=== PATIENT | male | born 1960 | race Caucasian/White ===

== ENCOUNTER 2025-03-10 07:30 | Outpatient (REF) | payer MEDICARE, MEDICAID, SELFPAY ==
--- OUTSIDE RECORDS SUMMARY | 2025-03-10 07:36 | XMS_ITS | Encounter Summary ---
Author Organization [employer] Address [address] [facility] 7t [place] [address] Care Team Providers Care Equine Intern Name Role Phone Alma Hartman MD Primary Care Provider +1- [phone] Reason for Visit * Reason Comments Med Refill Encounter Details Date Type Department Care Team ([facility] st Contact Info) Description 04/26/2024 Refill [facility] MED & PEDS [address] [place], [place] [phone] Alma Hartman MD [address] [place], [place] [phone] Wheeze Social History Tobacco Use Types Packs/Day Years Used Date Smoking Tobacco: Never Assessed Sex and Gender Information Value Date Recorded Sex Assigned at Male 09/23/2022 10:20 AM EDT Legal Sex Male 10:20 AM EDT Gender Identity Male 09/23/2022 10:20 AM EDT Sexual Orientation Choose not to disclose 2021 10:20 AM EDT documented as of this encounter Plan of Treatment Not on file documented as of this encounter Visit Diagnoses Diagnosis Wheeze Wheezing documented in this encounter Care Teams Equine Intern Relationship Specialty Start Date End Date Alma Hartman MD [address] [place], [place] [phone] PCP - General Family Medicine 11/24/18 documented as of this encounter
--- OUTSIDE RECORDS SUMMARY | 2025-03-10 07:36 | XMS_ITS | Clinical Summary ---
Author Organization [employer] Address [address] [facility] 7t [place] [address] Care Team Providers Care Mark Up Designer Name Role Phone Alma Hartman MD Primary Care Provider +1- [phone] Allergies No known active allergies Medications albuterol (2.5 MG/3ML) 0.083% nebulizer solutionIndicatio ns:Mild intermittent asthma without complication INHALE 3 MILLILITER (2.5MG) BY NEBULIZER EVERY 4 HOURS NEEDED 75 mL 2 3 Active lisinopril 10 MG tabletIndications :Primary hypertension Take 1 tablet (10 mg) by mouth Once per day. 90 tablet 3 4 Active fluticasone-salme terol (Advair) 230-21 MCG/ACT inhalerIndication s:Chronic obstructive pulmonary disease, unspecified COPD type (CMS/HCC) Inhale 2 puffs in the morning and at bedtime. Rinse mouth with water after use to reduce aftertaste and incidence of candidiasis. Do not swallow. 12 g 11 4 08/09/20 25 Active ipratropium-albut amina (Combivent Respimat) 20-100 MCG/ACT inhalerIndication s:Wheeze INHALE 1 PUFF 4 TIMES EVERY DAY MAY TAKE ADDITIONAL PUFFS NEEDED NOT TO EXCEED 6 PUFFS IN 24HRS 4 g 4 Active amLODIPine (Norvasc) 5 MG tabletIndications :Primary hypertension TAKE 1 TABLET (5 MG) BY MOUTH ONCE PER DAY. 90 tablet 1 5 Active chlorthalidone (Hygroton) 25 MG tabletIndications :Primary hypertension TAKE 1 TABLET (25 MG) BY MOUTH ONCE PER DAY. 90 tablet 1 5 Active albuterol 108 (90 Base) MCG/ACT inhalerIndication s:Mild intermittent asthma without complication TAKE 2 PUFFS BY MOUTH EVERY 4 TO 6 HOURS NEEDED 18 g 3 5 Active Active Problems Problem Noted Date Diagnosed Date Cardiac risk counseling 03/17/2024 Overview (08/09/2024): The ASCVD Risk score (Aster HOLLAND, et al., 2019) failed to calculate for the following reasons: The systolic blood pressure is missing Cannot find a previous HDL lab Cannot find a previous total cholesterol lab The smoking status is invalid Colon cancer screening 12/30/2023 Overview (12/30/2023): -declined colonoscopy 02/13/22, agreed to cologuard. 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 -Continue lifestyle modifications -Continue current medications Assessment & Plan (08/09/2024 11:58 AM EDT): -Blood pressure has been at goal, per pt at home. -Continue lifestyle modifications -Continue current medications Male hypogonadism 10/30/2012 09/30/2023 Osteopenia 10/30/2012 09/30/2023 Pain in wrist 10/30/2012 09/30/2023 Encounters Date Type Department Care Team Description 03/07/2025 Telephone [facility] MEDICINE [address] [place] [address] Alma Hartman MD Lab Orders 02/08/2025 Refill [facility] MED & PEDS [address] [place] [address] Alma Hartman MD Mild intermittent asthma without complication 02/04/2025 Population Health Risk Score [facility] [address] [phone] Provider, Population Health Generic 01/18/2025 Telephone [facility] MEDICINE [address] [place] [address] Alma Hartman MD 12/12/2024 Refill [facility] MEDICINE [address] [place], [place] [phone] Alma Hartman MD Primary hypertension from Last 3 Months Immunizations Name Administration Dates Next Due Influenza injectable quadriv alent IIV4 with preservative 09/19/2016 Influenza, IIV3, injectable 08/31/2010, 9 Influenza, Split (incl. purified surface antigen ) 10/30/2012 Pfizer Covid-19 Vaccine 12+ 04/03/2021, 1 Pneumococcal Polysaccharide PPSV23 10/09/2009 Tdap 06/30/2014 Social History Tobacco Use Types Packs/Day Years Used Date Smoking Tobacco: Never Smokeless Tobacco: Never Tobacco Cessation:Counseling Given: Not Answered Depression Answer Date Recorded Patient Health Questionnaire-9 Score 0 08/09/2024 Patient Health Questionnaire-9 Score 0 08/09/2024 Last PHQ-9: Questionnaire Data Not on file 0 08/09/2024 Depression Answer Date Recorded Patient Health Questionnaire-2 Score 0 08/09/2024 Sex and Gender Information Value Date Recorded Sex Assigned at Male 09/23/2022 10:20 AM EDT Legal Sex Male 10:20 AM EDT Gender Identity Male 09/23/2022 10:20 AM EDT Sexual Orientation Choose not to disclose 2021 10:20 AM EDT Last Filed Vital Signs Vital Sign Reading Time Taken Comments Blood Pressure 118/85 02/13/2022 12:03 AM EDT Pulse 104 2021 12:11 AM EST Temperature - - Respiratory Rate - - Oxygen Saturation - - Inhaled Oxygen Concentration - - Weight 70.6 kg (155 lb 9.6 oz) 2021 12:11 AM EST Height 170.2 cm (5' 7 ) 2021 12:11 AM EST Body Mass Index 24.37 2021 12:11 AM EST Plan of Treatment Health Maintenance Due Date Last Done Comments CT Colonography 1958 Colonoscopy 1958 Colorectal Cancer Screening 1958 FIT DNA/Cologuard 1958 FIT 1958 FOBT 1958 Lipid Panel 1958 SDOH Screening 1958 Sigmoidoscopy 1958 Alcohol/Substance Use Screening 1970 Hepatitis C Screening 1976 Zoster Vaccines (1 of 2) 2008 Pneumococcal Vaccine: 50+ Years (2 of 2 - PCV) 10/09/2010 10/09/2009 RSV Patients and Patients Aged 60 years or older (1 - Risk 60-74 years 1-dose series) 2018 DTaP/Tdap/Td Vaccines (2 - Td or Tdap) 06/30/2024 06/30/2014 Influenza Vaccine (#1) 2025 6, 10/30/2012, 08/31/2010, Additional history exists Postponed from 07/25/2024 (Patient Refused) COVID-19 Vaccine ( season) 2025 06/26/2022, 04/03/2021, 03/06/2021 Postponed from 07/25/2024 (Patient Refused) Depression Screening 08/09/2025 08/09/2024, 08/09/20 24 Tobacco Screening 08/09/2025 08/09/2024 HIB Vaccines Aged Out No longer eligi ble based on patient's age to complete this topic HPV Vaccines Aged Out No longer eligi ble based on patient's age to complete this topic Hepatitis A Vaccines Aged Out No long er eligible based on patient's age to complete this topic Hepatitis B Vaccines Aged Out No long er eligible based on patient's age to complete this topic IPV Vaccines Aged Out No longer eligi ble based on patient's age to complete this topic Meningococcal Vaccine Aged Out No olive john eligible based on patient's age to complete this topic RSV under 20 months Aged Out No longe r eligible based on patient's age to complete this topic Rotavirus Vaccines Aged Out No longer eligible based on patient's age to complete this topic Insurance MEDICARE Care Teams Mark Up Designer Relationship Specialty Start Date End Date [place], [place] Alma [address] [place] [place] [phone] PCP - General Family Medicine 11/24/18
--- OUTSIDE RECORDS SUMMARY | 2025-03-10 07:36 | XMS_ITS | Encounter Summary ---
Author Organization [employer] Address [address] [facility] [address] [place] [address] Care Team Providers Care Tile And Mottle Supervisor Name Role Phone Alma Hartman MD Primary Care Provider +1- [phone] Reason for Visit * Reason Onset Date Comments Lab Orders 03/07/2025 Encounter Details Date Type Department Care Team ([facility] st Contact Info) Description 03/07/2025 Telephone [facility] MEDICINE [address] [place], [place] [phone] Alma Hartman MD [address] [place], [place] [phone] Lab Orders Social History Tobacco Use Types Packs/Day Years Used Date Smoking Tobacco: Never Smokeless Tobacco: Never Depression Answer Date Recorded Patient Health Questionnaire-9 [...] AM EDT documented as of this encounter Miscellaneous Notes * Telephone Encounter - Janett Ennis RN - 03/07/2025 2:53 PM EDT Incoming phone call from pt directly. Pt asking about outstanding lab work, advised he can get it done at [facility] or [facility], gave phone number and hours of operation. No further questions. documented in this encounter Plan of Treatment Not on file documented as of this encounter Visit Diagnoses Not on filedocumented in this encounter Additional Health Concerns Assessment Noted Time PHQ-9 Depression Total Score: 0 08/09/20 24 12:04 PM EDT documented as of this encounter Care Teams Tile And Mottle Supervisor Relationship Specialty Start Date End Date Alma Hartman MD [address] [place] [phone] PCP - General Family Medicine 11/24/18 documented as of this encounter
--- OUTSIDE RECORDS SUMMARY | 2025-03-10 07:36 | XMS_ITS | Encounter Summary ---
Author Organization [employer] Address [address] [facility] [address] [place] [address] Care Team Providers Care Account Auditor Name Role Phone Alma Hartman MD Primary Care Provider +1- [phone] Encounter Details Date Type Department Care Team (Late st Contact Info) Description 01/31/2023 Orders Only [facility] MED & PEDS [address] [place], [place] [phone] Bernice Smith LPN Social History Tobacco Use Types Packs/Day Years [...] Diagnoses Not on filedocumented in this encounter Care Teams Account Auditor Relationship Specialty Start Date End Date Alma Hartman MD [address] [place] [phone] PCP - General Family Medicine 11/24/18 documented as of this encounter
--- OUTSIDE RECORDS SUMMARY | 2025-03-10 07:36 | XMS_ITS | Encounter Summary ---
Author Organization [employer] Address [address] [facility] 7t [place] [address] Care Team Providers Care Claims Configuration Analyst Name Role Phone Alma Hartman MD Primary Care Provider +1- [phone] Encounter Details Date Type Department Care Team (Late st Contact Info) Description 05/22/2023 Orders Only [facility] MED & PEDS [address] [place], [place] [phone] Bernice Smith LPN Social History Tobacco Use [...] on filedocumented in this encounter Care Teams Claims Configuration Analyst Relationship Specialty Start Date End Date Alma Hartman MD [address] [place] [phone] PCP - General Family Medicine 11/24/18 documented as of this encounter
--- OUTSIDE RECORDS SUMMARY | 2025-03-10 07:36 | XMS_ITS | Encounter Summary ---
Author Organization [employer] Address [address] [facility] 7t [place] [address] Care Team Providers Care Tennis Director Name Role Phone Alma Hartman MD Primary Care Provider +1- [phone] Encounter Details Date Type Department Care Team (Late st Contact Info) Description 07/11/2023 Orders Only [facility] MED & PEDS [address] [place], [place] [phone] Bernice Smith LPN Social History Tobacco Use [...] on filedocumented in this encounter Care Teams Tennis Director Relationship Specialty Start Date End Date Alma Hartman MD [address] [place] [phone] PCP - General Family Medicine 11/24/18 documented as of this encounter
--- OUTSIDE RECORDS SUMMARY | 2025-03-10 07:36 | XMS_ITS | Encounter Summary ---
Author Organization [employer] Address [address] [facility] [address]t [place] [address] Care Team Providers Care Supervisor Receiving And Processing Name Role Phone Alma Hartman MD Primary Care Provider +1- [phone] Reason for Visit * Reason Comments Med Refill Encounter Details Date Type Department Care Team ([facility] st Contact Info) Description 09/15/2024 Refill [facility] MED & PEDS [address] [place] [address] Lexus Tang MD [address] [place] [address] Wheeze Social History Tobacco Use Types Packs/Day [...] Diagnosis Wheeze Wheezing documented in this encounter Additional Health Concerns Assessment Noted Time PHQ-9 Depression Total Score: 0 08/09/20 24 12:04 PM EDT documented as of this encounter Care Teams Supervisor Receiving And Processing Relationship Specialty Start Date End Date Alma Hartman MD [address] [place] [phone] PCP - General Family Medicine 11/24/18 documented as of this encounter
[2025-03-10 07:45] LABS: MANUAL DIFF FLAG NO
[2025-03-10 08:48] LABS: Basophils Absolute Auto 0.1 X10*3/uL (0.0-0.2); Basophils Percent Auto 1.2 % (0-2); Eosinophils Absolute Auto 0.1 X10*3/uL (0.0-0.4); Eosinophils Percent Auto 1.7 % (0-4); Hematocrit 43.2 % (42.0-52.0); Imm Gran Abs Auto 0.01 X10*3/uL (0.00-0.03); Imm Gran Pct Auto 0.2 % (0.0-0.4); Lymphocytes Absolute Auto 1.5 X10*3/uL (1.2-4.9); Mean Corpuscular Volume 83.7 fL (80.0-98.0); Mean Platelet Volume 8.9 fL (9.4-12.4); Monocytes Absolute Auto 0.7 X10*3/uL (0.1-1.2); Monocytes Percent Auto 11.4 % (2-11); Neutrophils Absolute Auto 3.5 x10*3/uL (2.0-8.3); Neutrophils Percent Auto 59.5 % (45-73); Platelet Count 270 X10*3/uL (160-400); Red Blood Count 5.16 X10*6/uL (4.60-5.80); Red Cell Distribution Width 12.3 % (11.0-16.0); White Blood Count 5.8 X10*3/uL (4.8-10.8)
[2025-03-10 09:25] LABS: Alanine Aminotransferase 22 U/L (0-40); Albumin Level 4.6 g/dL (3.5-5.0); Anion Gap 14 (12-20); Aspartate Amino Transferase 25 U/L (5-37); Bilirubin Direct 0.3 mg/dL (0.0-0.5); Bilirubin Total 0.8 mg/dL (0.0-1.0); Blood Urea Nitrogen 5 mg/dL (9-16); Calcium 9.8 mg/dL (8.4-10.2); Carbon Dioxide 29 mmol/L (22-29); Chloride 98 mmol/L (96-108); Cholesterol 167 mg/dL (<200); Estimated Glomerular Filt Rate > 60; Glucose Random 113 mg/dL (60-115); HDL Cholesterol 56 mg/dL (>40); LDL Cholesterol Calculated 101 mg/dL (<100); Sodium 138 mmol/L (135-145); Total Protein 7.2 g/dL (6.5-8.0); Triglycerides 54 mg/dL (<150)
[2025-03-10 09:29] LABS: HIV AB/AG Nonreactive (Nonreactive); HIV Num 1 0.06 S/CO (0.00-0.99); ~HepC Num1 0.09 S/CO (0.00-0.79); ~Hepatitis C Antibody Nonreactive (Nonreactive)
[2025-03-10 09:30] LABS: Creatinine Urine 52.38 mg/dL; Microalbum/Creatinine Ratio Ur 177.5 ug/mg cr (<30)
[2025-03-10 09:34] LABS: Potassium 2.6 mmol/L (3.3-5.1)
[2025-03-10 09:49] LABS: TSH reflex Free T4 1.12 uIU/mL (0.32-4.0); Vitamin D 25-OH Total 7.4 ng/mL (>30)
[2025-03-10 09:54] LABS: Alkaline Phosphatase 84 U/L (39-117)
== END 2025-03-10 07:31 | disposition home or self-care (01) ==
LOC: HO.LAB 07:30
PROVIDERS: Visit Provider Family Medicine
DX: I10 Essential (primary) hypertension (principal); E78.5 Hyperlipidemia, unspecified; E55.9 Vitamin D deficiency, unspecified; Z11.3 Encounter for screening for infections with a predominantly sexual mode of transmission
CPT/HCPCS: 36415; 80048; 80061; 80076; 82043; 82306; 82570; 83735; 84443; 85025; 86803; 87389

== ENCOUNTER 2025-09-01 07:34 | Outpatient (REF) | payer MEDICARE, MEDICAID, SELFPAY ==
[2025-09-01 08:32] LABS: Anion Gap 9 (12-20); Blood Urea Nitrogen 7 mg/dL (9-16); Calcium 9.4 mg/dL (8.4-10.2); Carbon Dioxide 33 mmol/L (22-29); Chloride 105 mmol/L (96-108); Estimated Glomerular Filt Rate > 60; Magnesium 2.1 mg/dL (1.6-2.6); Potassium 3.2 mmol/L (3.3-5.1); Sodium 144 mmol/L (135-145)
[2025-09-01 09:36] LABS: Microalbum/Creatinine Ratio Ur 112.8 ug/mg cr (<30)
== END 2025-09-01 07:35 | disposition home or self-care (01) ==
LOC: HO.LAB 07:34
PROVIDERS: PCP Family Medicine; Visit Provider Family Medicine
DX: I10 Essential (primary) hypertension (principal); E87.6 Hypokalemia; R80.9 Proteinuria, unspecified
CPT/HCPCS: 36415; 80048; 82043; 82570; 83735